=== PATIENT | female | born 1930 ===

== ENCOUNTER 2018-04-20 17:22 | Observation (INO) | payer MEDICARE, BC ==
[~2018-04-20] VITALS: Ht 157.5 cm; Wt 81.6 kg
[2018-04-20 18:08] VITALS: BP 180/79
[2018-04-20 18:36] LABS: ANION GAP 9 mmol/L (5-15); BLOOD UREA NITROGEN 17 mg/dL (7-18); CARBON DIOXIDE 28 MMOL/L (21-32); CHLORIDE 104 MMOL/L (98-107); CREATININE 0.9 MG/DL (0.55-1.30); POTASSIUM 4.3 MMOL/L (3.5-5.1); SODIUM 141 MMOL/L (136-145)
[2018-04-20 18:38] LABS: HEMATOCRIT 43.5 % (37.0-47.0); HEMOGLOBIN 14.1 G/DL (12.0-16.0); MEAN CORPUSCULAR VOLUME 95 FL (80-99); PLATELET COUNT 168 K/UL (150-450); RED BLOOD COUNT 4.56 M/UL (4.20-5.40); RED CELL DISTRIBUTION WIDTH 13.5 % (11.6-14.8)
[2018-04-20 18:41] LABS: ALANINE AMINOTRANSFERASE 21 U/L (12-78); ALBUMIN 3.7 G/DL (3.4-5.0); ALBUMIN/GLOBULIN RATIO 0.9 (1.0-2.7); ALKALINE PHOSPHATASE 68 U/L (46-116); AMYLASE 39 U/L (25-115); ASPARTATE AMINO TRANSFERASE 18 U/L (15-37); BILIRUBIN,TOTAL 0.4 MG/DL (0.2-1.0)
[2018-04-20 18:46] LABS: APPEARANCE,URINE CLEAR; BILIRUBIN, URINE NEGATIVE (NEGATIVE); COLOR,URINE PALE YELLOW; GLUCOSE, URINE (UA) NEGATIVE (NEGATIVE); KETONES,URINE 2+ (NEGATIVE); LEUKOCYTE ESTERASE ,URINE NEGATIVE (NEGATIVE); NITRITE,URINE NEGATIVE (NEGATIVE); PH,URINE 7 (4.5-8.0); PROTEIN,URINE NEGATIVE (NEGATIVE); UROBILINOGEN,URINE NORMAL MG/DL (0.0-1.0)
[2018-04-20] MEDS ORDERED: SYNTHROID100 MCG ORAL (18:50)
[2018-04-20] MEDS ORDERED: QUETIAPINE FUMA50 MG ORAL (18:50)
[2018-04-20] MEDS ORDERED: ATORVASTATIN CA10 MG ORAL (18:50)
[2018-04-20] MEDS ORDERED: MEMANTINE HCL E28 MG PO (18:50)
[2018-04-20] MEDS ORDERED: LORATADINE10 M2 PO (18:50)
[2018-04-20] MEDS ORDERED: TYLENOL EXTRA500 MG ORAL (18:50)
[2018-04-20] MEDS ORDERED: FLUTICASONE PRO16 G1 NASAL (18:50)
[2018-04-20] MEDS ORDERED: VITAMIN D-32000 UNI2 PO (18:50)
[2018-04-20] MEDS ORDERED: ESCITALOPRAM OX10 MG ORAL (18:50)
[2018-04-20] MEDS ORDERED: LIDEX15 GM TOPIC (18:50)
[2018-04-20] MEDS ORDERED: EXELON1 EACH TD (18:50)
[2018-04-20] MEDS ORDERED: DICLOFENAC SOD100 GM TP (18:50)
[2018-04-20] MEDS ORDERED: ENSURE CLEAR296 ML PO (18:50)
[2018-04-20] MEDS ORDERED: REFRESH TEARS15 ML BOTH EYES (18:50)
[2018-04-20] MEDS ORDERED: FUROSEMIDE20 M1 ORAL (18:50)
[2018-04-20 19:30] VITALS: BP 152/82
[2018-04-20 20:30] VITALS: BP 151/82
[2018-04-20] MEDS ORDERED: Vitamin D 400 INTLU TAB ORAL SCH (20:45)
[2018-04-20] MEDS ORDERED: Acetaminophen 500mg (ES) tab ORAL PRN (20:45)
[2018-04-20] MEDS ORDERED: Lisinopril 10mg tab ORAL SCH (21:00)
[2018-04-20 21:30] VITALS: BP 148/78
--- NOTE | 2018-04-20 21:41 | Emergency Room Report ---
History of Present Illness General Chief Complaint: Hypertension Source: Medical Record Present Illness HPI Patient 87-year-old female sent in by nursing facility for increased blood pressure and episode of chest discomfort. Patient was noted to have episode where she became somewhat diaphoretic. Patient had the been reporting some epigastric pain. She has prior history of dementia. Patient is noted to have pulse with comfort measures only. Patient has DURABLE POWER OF PHYSICIAN PEDIATRICIAN who is her son Ramon. The patient is reportedly to receive medical interventions as needed. The patient denies any discomfort at this time. She was noted to have no known prior cardiac history. Allergies: Coded Allergies: MORPHINE (Verified Allergy, Intermediate, 04/20/18) Patient History Past Medical History: see triage record Reviewed Nursing Documentation: PMH: Agreed; PSxH: Agreed Nursing Documentation-PMH Past Medical History: No History, Except For History Of Psychiatric Problem: Yes - Depression Hx Neurological Problems: Yes - Alzheimer Review of Systems All Other Systems: limited - by mental status Physical Exam Vital Signs Date Time Temp Pulse Resp B/P (MAP) Pulse Ox O2 Delivery O2 Flow Rate FiO2 04/20/18 17:42 97.8 84 19 180/79 99 Room Air 97.9 Sp02 EP Interpretation: reviewed, normal General Appearance: normal inspection, well appearing, no apparent distress, alert, obese, Chronically Ill Head: atraumatic ENT: normal ENT inspection, hearing grossly normal, normal voice Neck: normal inspection, full range of motion, supple, no bony tend Respiratory: normal inspection, lungs clear, normal breath sounds, no respiratory distress, no retraction, no wheezing Cardiovascular #1: regular rate, rhythm, no edema Gastrointestinal: normal inspection, normal bowel sounds, non tender, soft, no guarding, no hernia Genitourinary: no CVA tenderness Musculoskeletal: normal inspection, back normal, normal range of motion Neurologic: normal inspection, alert, responsive, speech normal Psychiatric: normal inspection, judgement/insight normal, mood/affect normal Skin: normal inspection, normal color, no rash Medical Decision Making Diagnostic Impression: Primary Impression: Chest pain Additional Impressions: Cholelithiasis Cardiomegaly CHF (congestive heart failure) ER Course Patient presented for abdominal pain. Differential diagnoses included ischemic bowel, appendicitis, perforated viscus, abdominal aortic aneurysm, inferior myocardial infarction, viral gastroenteritis Because of complexity of patient's case laboratory testing and imaging studies were ordered. Laboratory testing was notable for normal white blood count with left shift. The patient was noted to be afebrile. CT the abdomen pelvis read by radiology showed gallstones as well as cardiomegaly and small pericardial effusion. Dr. Naseem Delgado was contacted for inpatient observation due to covering physician Labs Test 04/20/18 17:53 04/20/18 18:28 White Blood Count 9.0 K/UL (4.8-10.8) Red Blood Count 4.56 M/UL (4.20-5.40) Hemoglobin 14.1 G/DL (12.0-16.0) Hematocrit 43.5 % (37.0-47.0) Mean Corpuscular Volume 95 FL (80-99) Mean Corpuscular Hemoglobin 30.8 PG (27.0-31.0) Mean Corpuscular Hemoglobin Concent 32.3 G/DL (32.0-36.0) Red Cell Distribution Width 13.5 % (11.6-14.8) Platelet Count 168 K/UL (150-450) Mean Platelet Volume 7.3 FL (6.5-10.1) Neutrophils (%) (Auto) % (45.0-75.0) Lymphocytes (%) (Auto) % (20.0-45.0) Monocytes (%) (Auto) % (1.0-10.0) Eosinophils (%) (Auto) % (0.0-3.0) Basophils (%) (Auto) % (0.0-2.0) Differential Total Cells Counted 100 Neutrophils % (Manual) 84 % (45-75) Lymphocytes % (Manual) 11 % (20-45) Monocytes % (Manual) 5 % (1-10) Eosinophils % (Manual) 0 % (0-3) Basophils % (Manual) 0 % (0-2) Band Neutrophils 0 % (0-8) Platelet Estimate Adequate Platelet Morphology Normal Red Blood Cell Morphology Normal Prothrombin Time 10.3 SEC (9.30-11.50) Prothromb Time International Ratio 1.0 (0.9-1.1) Activated Partial Thromboplast Time 26 SEC (23-33) Sodium Level 141 MMOL/L (136-145) Potassium Level 4.3 MMOL/L (3.5-5.1) Chloride Level 104 MMOL/L (98-107) Carbon Dioxide Level 28 MMOL/L (21-32) Anion Gap 9 mmol/L (5-15) Blood Urea Nitrogen 17 mg/dL (7-18) Creatinine 0.9 MG/DL (0.55-1.30) Estimat Glomerular Filtration Rate mL/min (>60) Glucose Level 145 MG/DL (74-106) Calcium Level 9.0 MG/DL (8.5-10.1) Total Bilirubin 0.4 MG/DL (0.2-1.0) Aspartate Amino Transf (AST/SGOT) 18 U/L (15-37) Alanine Aminotransferase (ALT/SGPT) 21 U/L (12-78) Alkaline Phosphatase 68 U/L (46-116) Troponin I 0.000 ng/mL (0.000-0.056) Total Protein 7.7 G/DL (6.4-8.2) Albumin 3.7 G/DL (3.4-5.0) Globulin 4.0 g/dL Albumin/Globulin Ratio 0.9 (1.0-2.7) Amylase Level 39 U/L (25-115) Lipase 90 U/L (73-393) Urine Color Pale yellow Urine Appearance Clear Urine pH 7 (4.5-8.0) Urine Specific Stanton 1.010 (1.005-1.035) Urine Protein Negative (NEGATIVE) Urine Glucose (UA) Negative (NEGATIVE) Urine Ketones 2+ (NEGATIVE) Urine Occult Blood Negative (NEGATIVE) Urine Nitrite Negative (NEGATIVE) Urine Bilirubin Negative (NEGATIVE) Urine Urobilinogen Normal MG/DL (0.0-1.0) Urine Leukocyte Esterase Negative (NEGATIVE) EKG Diagnostic Results Rate: normal Rhythm: NSR ST Segments: no acute changes Last Vital Signs Date Time Temp Pulse Resp B/P (MAP) Pulse Ox O2 Delivery O2 Flow Rate FiO2 04/20/18 20:30 97.9 90 20 151/82 97 Room Air 97.9 Status: unchanged Disposition: PLACE IN OBSERVATION Condition: Stable Referrals: NOT CHOSEN IPA/,REFERRING (PCP) Saul Roberts MD Apr 20, 2018 21:41
[2018-04-20 22:30] VITALS: BP 147/87
[2018-04-21 01:17] VITALS: BP 153/89
[2018-04-21] MEDS: Lisinopril 10mg tab ORAL SCH ×2 (01:37→09:25)
[2018-04-21] MEDS ORDERED: Vitamin D 400 INTLU TAB ORAL SCH (02:00)
--- NOTE | 2018-04-21 03:31 | Consultation ---
DATE OF CONSULTATION: 04/20/2018 CARDIOLOGY CONSULTATION CONSULTING PHYSICIAN: Cleve Mitchell M.D. REQUESTING PHYSICIAN: Naseem Delgado M.D. REASON FOR CONSULTATION: Chest pain and shortness of breath. HISTORY OF PRESENT ILLNESS: This is an 87-year-old female. She was referred from a long term facility. She apparently had chest pain and was noted to have elevated blood pressure readings. She was also described as diaphoretic and short of breath. The patient has also been reporting some abdominal pain. Historical data is scant as the patient has underlying dementia. The patient does not have any known prior cardiac history. PAST MEDICAL HISTORY: Notable for Alzheimer's dementia and depression. ALLERGIES: None. MEDICATIONS: Reviewed and reconciled. SOCIAL HISTORY: Negative for smoking, alcohol, or substance abuse. Advanced directives, DNR and comfort measures only. REVIEW OF SYSTEMS: Not obtainable. PHYSICAL EXAMINATION: VITAL SIGNS: Initial blood pressure 180/79, subsequent blood pressure 151/82, heart rate 90, respiratory rate 20, and she is afebrile. Room air oxygen saturations are 97%. GENERAL: Moderately obese, ill-appearing. HEENT: Conjunctivae are pink. Oropharynx clear. NECK: Supple. LUNGS: Clear. CARDIAC: Regular rhythm and rate. Normal S1, S2 with no murmur. ABDOMEN: Soft, obese. EXTREMITIES: No edema. Palpable distal pulses. LABORATORY AND DIAGNOSTIC DATA: White count 9, hemoglobin 14. Troponin negative. BUN 17, creatinine 0.9. Potassium 4.3, bicarbonate 28, and sodium 141. Urinalysis reveals no active sediments. EKG, sinus rhythm with no acute abnormalities. Chest x-ray is pending for review. IMPRESSION: 1. Possible anginal episode with acute coronary syndrome. 2. Epigastric pain, etiology unclear. 3. Labile hypertension. PLAN: 1. Serial troponin. 2. Conservative management. 3. DNR. 4. Hold diuretics. 5. Echocardiogram will be checked. 6. Thyroid function to be checked. 7. Medical therapy to include nitrates and aspirin at this time. 8. Continued use of statin drugs. 9. Low-dose beta-blockade. 10. Based on advanced directives, we will pursue a medical course of therapy. Cleve Mitchell M.D. DR: AASHISH JOB#: [id number] CC:
[2018-04-21 04:00] VITALS: BP 154/88
[2018-04-21 07:29] LABS: BASOPHILS % (AUTO) 0.5 % (0.0-2.0); EOSINOPHILS % (AUTO) 0.8 % (0.0-3.0); HEMATOCRIT 40.4 % (37.0-47.0); HEMOGLOBIN 13.6 G/DL (12.0-16.0); MEAN CORPUSCULAR VOLUME 93 FL (80-99); MONOCYTES % (AUTO) 11.2 % (1.0-10.0); NEUTROPHILS % (AUTO) 67.5 % (45.0-75.0); PLATELET COUNT 176 K/UL (150-450); RED BLOOD COUNT 4.35 M/UL (4.20-5.40); RED CELL DISTRIBUTION WIDTH 12.8 % (11.6-14.8); WHITE BLOOD COUNT 6.7 K/UL (4.8-10.8)
[2018-04-21 07:51] LABS: ALANINE AMINOTRANSFERASE 20 U/L (12-78); ALBUMIN 3.1 G/DL (3.4-5.0); ALBUMIN/GLOBULIN RATIO 0.9 (1.0-2.7); ALKALINE PHOSPHATASE 60 U/L (46-116); ANION GAP 8 mmol/L (5-15); ASPARTATE AMINO TRANSFERASE 18 U/L (15-37); BILIRUBIN,TOTAL 0.5 MG/DL (0.2-1.0); BLOOD UREA NITROGEN 12 mg/dL (7-18); CALCIUM 8.8 MG/DL (8.5-10.1); CARBON DIOXIDE 27 MMOL/L (21-32); CHLORIDE 107 MMOL/L (98-107); CREATININE 0.9 MG/DL (0.55-1.30); POTASSIUM 3.6 MMOL/L (3.5-5.1); SODIUM 142 MMOL/L (136-145)
[2018-04-21 09:00] VITALS: BP 127/78
[2018-04-21] MEDS ORDERED: Heparin 5000 units/ml inj SUBQ SCH (09:00)
[2018-04-21] MEDS ORDERED: Flonase Nasal Inhaler 16gm NASAL SCH (09:00)
[2018-04-21] MEDS ORDERED: Memantine 10mg tab ORAL SCH (09:00)
--- NOTE | 2018-04-21 09:16 | History and Physical Report ---
DATE OF ADMISSION: 04/20/2018 CHIEF COMPLAINT: Shortness of breath and uncontrolled hypertension. HISTORY OF PRESENT ILLNESS: The patient is an 87-year-old female. She has a history of venous insufficiency, hypertension, hypertensive heart disease, and dementia. [facility] after she was noted to be diaphoretic and short of breath with an elevated blood pressure. She was sent to the emergency room. On evaluation there, the pressure was 180/79. She was noted to have a slightly elevated white count of 9000. There are no reports of any fever or chills. No cough. No diarrhea. Family does report some nausea. They have also noticed some worsening edema. Lasix was recently started to help with the edema. The patient denies any ill contacts. No headaches or vomiting rather than markedly elevated blood pressure. She is admitted for further evaluation and care. PAST MEDICAL HISTORY: As above. PAST SURGICAL HISTORY: None. CURRENT MEDICATIONS: Reconciled and reviewed. ALLERGIES: Morphine. FAMILY HISTORY: Noncontributory. SOCIAL HISTORY: There is no known history of tobacco, ethanol, or drugs. REVIEW OF SYSTEMS: GENERAL: No fevers or chills. HEENT: No headaches or visual changes. CARDIOPULMONARY: Positive shortness of breath, but no chest pain. GASTROINTESTINAL: Positive nausea, but no vomiting. GENITOURINARY: No urgency or frequency. MUSCULOSKELETAL: No joint pain, but positive swelling. NEUROLOGIC: No evidence of seizures. PHYSICAL EXAMINATION: VITAL SIGNS: Initial blood pressure was 180/79, current blood pressure is 153/89, pulse 89, and respirations 20. GENERAL: The patient is well developed, in no apparent distress. HEART: Regular rate and rhythm. LUNGS: Clear. ABDOMEN: Soft, nontender, and nondistended. EXTREMITIES: Without clubbing or cyanosis. There is 1+ to 2+ pitting edema noted. LABORATORY DATA: Sodium 141, potassium 4.3, and creatinine is 0.9. Troponin was negative. LFTs were unremarkable. Lipase and amylase were normal. White count was 9, hemoglobin 14, and platelet count of 168,000. Urine was clear. Chest x-ray showed cardiomegaly. ASSESSMENT: This is a pleasant female with complaints of shortness of breath, dizziness, and diaphoresis, suspect secondary to uncontrolled hypertension. PLAN: 1. Cardiology consultation. 2. Follow up repeat troponin. 3. Check venous duplex. 4. Titrate antihypertensive regimen. 5. Followup echo. 6. Possible discharge planning later today if the patient feels well and blood pressure is controlled. 7. Plan of care was discussed with the patient's son, Ramon and he is in agreement. Naseem Delgado M.D. DR: DENIS JOB#: [id number] CC:
--- NOTE | 2018-04-21 09:34 | Diagnostic Imaging Report ---
Indication: Abdominal pain Technique: Continuous helical transaxial imaging of the abdomen and pelvis was obtained from the lung bases to the pubic symphysis. No intravenous contrast was administered. Coronal 2-D reformats were also obtained. Automatic Exposure Control was utilized. Total Dose length Product (DLP): 1041.[address] Dose Index Volume (CTDIvol): 19.75 mGy Comparison: none Findings: There is a small pericardial effusion. Mild peripheral reticular densities are demonstrated within the visualized lung bases. The mitral annulus/valve is calcified. Aorta is moderately calcified. Tiny hypodensity demonstrated in the left lobe of the liver possibly cystic though nonspecific on this study. Gallstones are present. There are diverticula in the colon. There is no adrenal mass. No hydronephrosis or renal stones are identified. Pelvis partially obscured by a right total hip prosthesis and streak artifact. Uterus is noted but not evaluated well. Bladder also not evaluated well. Appendix is normal. No evidence of bowel obstruction, significant free fluid or evidence of free air. Degenerative changes of the lumbar spine are demonstrated multiple levels with vacuum disc phenomenon, narrowing, endplate and facet spur formation. Generalized osteopenia noted. IMPRESSION: No acute findings with limitations as above. Gallstones Mild diverticulosis of the colon. Normal appendix. Reticular densities at the lung bases. Mild degree of fibrosis not excluded. Right total hip replacement Small pericardial effusion Atherosclerotic disease. Degenerative changes of the spine [facility] has communicated the preliminary results to the Emergency Department. Their findings are largely concordant with this report. The CT scanner at [facility] is accredited by the [employer] and the scans are performed using dose optimization techniques as appropriate to a performed exam including Automatic Exposure control.
[2018-04-21 12:00] VITALS: BP 166/81
[2018-04-21 16:00] VITALS: BP 131/63
[2018-04-21] MEDS ORDERED: CLONIDINE0.1 MG ORAL (17:45)
[2018-04-21] MEDS ORDERED: LISINOPRIL10 MG ORAL (17:45)
[2018-04-21 20:07] VITALS: BP 114/68
--- NOTE | 2018-04-22 00:01 | Progress Note ---
DATE: 04/21/2018 CARDIOLOGY PROGRESS NOTE SUBJECTIVE: The patient has not had any more discomfort or chest pain. OBJECTIVE: VITAL SIGNS: Blood pressure 127/78 earlier, now 166/81, heart rate 81, respiratory rate 18 to 19, and afebrile. Room air oxygen sats are 97% to 99%. LUNGS: Clear. CARDIAC: Regular. Normal S1, S2. EXTREMITIES: A 1+ dependent edema. LABORATORY DATA: White count 6.7 and hemoglobin 13.6. Troponin negative x2. Pro-natriuretic peptide 693. Albumin 3.1. Chemistry panel normal. TSH normal. Venous duplex scan negative for DVT. IMPRESSION: 1. No evidence of acute coronary insufficiency at this time. 2. Abdominal pain has resolved. 3. Blood pressure remains overall stable although still slightly elevated at times. RECOMMENDATIONS: 1. Avoid diuretics. 2. Continue current medication regimen. 3. Outpatient monitoring of blood pressure parameters with uptitration of antihypertensives to be considered if needed. Cleve Mitchell M.D. DR: YAMILETH JOB#: [id number] CC:
[2018-04-22] MEDS ORDERED: Fluocinonide 15gm Cream TOPIC SCH (09:00)
--- NOTE | 2018-04-22 13:18 | Cardiology Report ---
APPROVED REPORT EKG Measurement Heart [id number] Sinus rhythm with 1st degree AV block Left ventricular hypertrophy with repolarization abnormality Abnormal ECG
--- NOTE | 2018-04-25 10:08 | Diagnostic Imaging Report ---
APPROVED REPORT CPT Code: 40220 Present Symptoms Shortness of breath Comments: Back pain Comments Technically difficult study due to vessel depth (mid-thigh and calf area). BILATERAL: Imaging reveals a patent deep venous system bilaterally. There is no evidence of thrombus within the femoral, popliteal or tibial segments. The greater saphenous veins are also within normal limits. Doppler indicates normal spontaneous flow within these segments.
--- NOTE | 2018-04-25 13:08 | Cardiology Report ---
APPROVED REPORT EXAM: Two-dimensional and M-mode echocardiogram with Doppler and color Doppler. INDICATION Coronary artery disease M-Mode DIMENSIONS IVSd2.5 (0.7-1.1cm)Left Atrium (MM)4.0 (1.6-4.0cm) LVDd3.5 (3.5-5.6cm)Aortic Root3.5 (2.0-3.7cm) PWd1.2 (0.7-1.1cm)Aortic Cusp Exc.1.2 (1.5-2.0cm) LVDs1.9 (2.5-4.0cm) PWs1.9 cm Technically difficult study due to poor acoustic windows. Study quality precludes accurate assessment of regional wall motion. Normal left ventricular chamber size, systolic function and wall motion. Left ventricular ejection fraction estimated to be 60 %. Moderate left ventricular hypertrophy. Anterior Echo-free space, may be due to pericardial fat or effusion. Left atrial size at upper limits of normal. Right cardiac chamber sizes are within normal limits. Aortic valve calcification with decreased cusp excursion c/w aortic stenosis. Heavily thickened mitral valve leaflets with reduced excursion. Heavy mitral annulus and aortic root calcification. Pulmonic valve not well visualized. Normal tricuspid valve structure. Subcostal views not obtainable. A color flow and spectral Doppler study was performed and revealed: Trace aortic regurgitation. Peak aortic valve gradient of 65 mmHg and a mean of 34 mmHg. Aortic valve area 0.9 cm2 calculated by continuity equation. Moderate mitral regurgitation. Mitral P1/2 time of 120 m/s is compatible with a mitral valve area of1.8 cm2. Peak mitral valve diastolic gradient of 16 mmHg and a mean gradient of 5 mmHg. Mitral diastolic velocities suggest mild LV diastolic dysfunction (Grade I ). Mild tricuspid regurgitation. Tricuspid systolic velocities suggests peak right ventricular systolic pressure of 51 mmHg, consistent with moderate pulmonary hypertension.
--- NOTE | 2018-04-28 10:08 | Discharge Summary ---
Discharge Summary Discharge Summary _ DATE OF ADMISSION: 04/20/2018 DATE OF DISCHARGE: 04/21/2018 CONSULTANTS: Dr. Cleve Mitchell BRIEF HOSPITAL COURSE: Patient is an 87-year-old female, with history of venous insufficiency, hypertension, hypertensive heart disease, and dementia, was transferred from [facility] facility after she was noted to be diaphoretic and short of breath with elevated blood pressure. She was sent to the emergency room and on evaluation, blood pressure was 180/79. She had slightly elevated WBC of 9. There was no report of fever, no cough no chills, no diarrhea. She had worsening edema and Lasix was recently started. She denied any ill contacts, no headaches, no vomiting. She was admitted under observation for further evaluation. She underwent cardiac evaluation. EKG was in normal sinus rhythm with no acute abnormalities. Troponin was negative 2. Echocardiogram showed normal ejection fraction. Venous duplex of lower extremity was negative for DVT. Abdominal and pelvic CT with no acute findings. She was continued on her home meds. She was given Lipitor and lisinopril. She had negative work-up and was eventually discharged home. FINAL DIAGNOSES: Possible anginal episode Uncontrolled hypertension Shortness of breath, dizziness and diaphoresis possibly secondary to above Epigastric pain, etiology unclear, resolved DISPOSITION: Patient was discharged home. DISCHARGE MEDICATIONS: Refer to Discharge Medication List. DISCHARGE INSTRUCTIONS: Follow up with PCP in a week. I have been assigned to dictate discharge summary on this account, and I was not involved in the patient's management. Anny Sheth NP Apr 28, 2018 10:08
== END 2018-04-21 20:15 | disposition home or self-care (01) ==
LOC: EDBD 17:22 → EMR 19:00 → 4W 19:41 → INTOOBSV 19:41 → EDBEDREQ 20:41
DX: R07.9 Chest pain, unspecified (principal); R06.02 Shortness of breath; G30.9 Alzheimer's disease, unspecified; I11.9 Hypertensive heart disease without heart failure; F02.80 Dementia in other diseases classified elsewhere, unspecified severity, without behavioral disturbance, psychotic disturbance, mood disturbance, and anxiety; F32.9 Major depressive disorder, single episode, unspecified; Z66 Do not resuscitate; R10.13 Epigastric pain; Z88.6 Allergy status to analgesic agent; R42 Dizziness and giddiness; Z51.5 Encounter for palliative care
CPT/HCPCS: 36415 ×2; 74176; 80053 ×2; 81003; 82150; 83690; 83880; 84443; 84484 ×2; 85007; 85025 ×2; 85610; 85730; 86850; 86900; 86901; 87081 ×3; 93005; 93306; 93970; 96372; 99285; G0378 ×2; J1644; J1940